=== PATIENT | female | born 1980 | race Caucasian/White ===

== ENCOUNTER 2018-01-13 07:58 | Inpatient (IN) | payer MEDICAID ==
[~2018-01-13] VITALS: Ht 157.5 cm; Wt 94.7 kg
[~2018-01-13 07:58] MED LIST: ASPI-515 PO
[2018-01-26] MEDS ORDERED: LACTATED RINGERS 1,000 ML IV SCH ×4 (09:55→12:19)
[2018-01-26] MEDS ORDERED: OXYTOCIN 30U/ 0.9% NaCL 500ML 500 ML IV SCH ×2 (09:55→12:19)
[2018-01-26] MEDS ORDERED: SODIUM CITRATE/CITRIC ACID 30 ML UDC PO ONE (10:00)
[2018-01-26] MEDS ORDERED: LACTATED RINGERS 1,000 ML IVBOLUS ONE (10:00)
[2018-01-26] MEDS ORDERED: METOCLOPRAMIDE 5 MG/ML, 2ML IV ONE (10:00)
[2018-01-26] MEDS ORDERED: PLEASE ENTER HEIGHT AND WEIGHT MC SCH (10:30)
[2018-01-26 10:33] VITALS: BP 112/78
[2018-01-26 10:36] LABS: BASOPHILS # (AUTO) 0.03 x10^3/uL (0-0.1); BASOPHILS % (AUTO) 0 % (0-1); EOSINOPHILS # (AUTO) 0.15 x10^3/uL (0-0.4); EOSINOPHILS % (AUTO) 1 % (1-7); LYMPHOCYTES # (AUTO) 1.03 x10^3/uL (1-3.4); LYMPHOCYTES % (AUTO) 10 % (22-44); MD NO; MEAN CORPUSCULAR HEMOGLOBIN 25.9 pg (27.0-34.8); MEAN CORPUSCULAR HGB CONC 32.8 g/dL (32.4-35.8); MEAN PLATELET VOLUME 7.8 fL (7.4-10.4); MONOCYTES # (AUTO) 0.76 x10^3/uL (0.2-0.8); MONOCYTES % (AUTO) 7 % (2-9); NEUTROPHILS # (AUTO) 8.76 x10^3/uL (1.8-6.8); NEUTROPHILS % (AUTO) 82 % (42-75); PLATELET COUNT 262 x10^3/uL (130-400); RED BLOOD COUNT 4.21 x10^6/uL (3.82-5.3); RED CELL DISTRIBUTION WIDTH 15.3 % (9.6-15.2)
[2018-01-26] MEDS ORDERED: PREN-3 PO (10:41)
[2018-01-26] MEDS ORDERED: [UNRECOGNIZED DRUG - CODE] SQ (10:41)
[2018-01-26 10:49] LABS: INTERNATIONAL NORMALIZED RATIO 0.89 (0.93-1.1); PROTHROMBIN TIME 9.2 Seconds (9.6-11.5)
[2018-01-26] MEDS ORDERED: METOCLOPRAMIDE 5 MG/ML, 2ML ONE (10:56)
[2018-01-26] MEDS ORDERED: SODIUM CITRATE/CITRIC ACID 30 ML UDC ONE (10:56)
[2018-01-26] MEDS ORDERED: OXYTOCIN 30U/ 0.9% NaCL 500ML 500 ML ONE (10:56)
[2018-01-26] MEDS ORDERED: ONDANSETRON 2MG/ML, 2ML ONE (11:39)
[2018-01-26] MEDS ORDERED: OXYTOCIN 10 UNITS/ML, 1ML ONE (11:39)
[2018-01-26] MEDS ORDERED: PHENYLEPHRINE 10 MG/ML ONE (11:39)
[2018-01-26] MEDS ORDERED: WATER-INJECTION,STERILE 10 ML IV ONE (11:39)
[2018-01-26] MEDS ORDERED: morphine SULFATE/PF 0.5 MG/ML, 10ML ONE (11:39)
[2018-01-26] MEDS ORDERED: EPHEDRINE 50 MG/ML, 1ML ONE (11:39)
[2018-01-26] MEDS ORDERED: CEFAZOLIN 1,000 MG ONE (11:39)
[2018-01-26] MEDS: LACTATED RINGERS 1,000 ML IV SCH ×4 (12:23→22:23)
[2018-01-26] MEDS: OXYTOCIN 30U/ 0.9% NaCL 500ML 500 ML IV SCH ×2 (12:23→22:23)
[2018-01-26] MEDS ORDERED: ACETAMINOPHEN 325 MG TABLET PO PRN ×2 (12:30)
[2018-01-26] MEDS ORDERED: OXYcodone/APAP 5/325MG TABLET PO PRN (12:30)
[2018-01-26] MEDS ORDERED: MEASLES,MUMPS&RUBELLA VACC/PF 0.5 ML SQ-VACC PRN ×2 (12:30)
[2018-01-26] MEDS ORDERED: ONDANSETRON 2MG/ML, 2ML IV PRN ×2 (12:30)
[2018-01-26] MEDS ORDERED: SIMETHICONE 80 MG CHEW TAB PO PRN (12:30)
[2018-01-26] MEDS ORDERED: MEPERIDINE/PF 50 MG/ML IVPush PRN ×2 (12:30)
[2018-01-26] MEDS ORDERED: OXYcodone IR 5MG TABLET PO PRN ×2 (12:30)
[2018-01-26] MEDS ORDERED: DOCUSATE 100 MG CAPSULE PO PRN (12:30)
[2018-01-26] MEDS: KETOROLAC 30 MG/1 ML IV SCH ×3 (12:30→23:58)
[2018-01-26] MEDS ORDERED: METHYLERGONOVINE 0.2 MG/ML IM PRN ×2 (12:30)
[2018-01-26] MEDS ORDERED: DIPH,PERTUSS(ACELL),TET VAC/PF NC IM-VACC PRN ×2 (12:30)
[2018-01-26] MEDS ORDERED: CARBOPROST TROMETHAMINE 250 MCG/ML, 1ML IM PRN ×2 (12:30)
[2018-01-26] MEDS ORDERED: morphine SULFATE 10 MG/ML, 1ML IVPush PRN ×4 (12:30)
[2018-01-26] MEDS ORDERED: MISOPROSTOL 200 MCG TABLET PR PRN ×2 (12:30)
[2018-01-26] MEDS ORDERED: IBUPROFEN 600 MG TABLET PO PRN ×2 (12:30)
[2018-01-26] MEDS ORDERED: KETOROLAC 30 MG/1 ML IV SCH (12:30)
[2018-01-26] MEDS ORDERED: NEWBORN KIT ONE (12:40)
[2018-01-26] MEDS ORDERED: HYDROmorphone 1 MG/ML, 1ML IV PRN (16:00)
[2018-01-26 16:18] VITALS: BP 102/67
[2018-01-26 19:45] VITALS: BP 110/70
[2018-01-26 21:32] LABS: BASOPHILS # (AUTO) 0.04 x10^3/uL (0-0.1); BASOPHILS % (AUTO) 0 % (0-1); EOSINOPHILS # (AUTO) 0.06 x10^3/uL (0-0.4); EOSINOPHILS % (AUTO) 1 % (1-7); LYMPHOCYTES # (AUTO) 1.13 x10^3/uL (1-3.4); LYMPHOCYTES % (AUTO) 12 % (22-44); MD NO; MEAN CORPUSCULAR HEMOGLOBIN 26.1 pg (27.0-34.8); MEAN CORPUSCULAR HGB CONC 33.2 g/dL (32.4-35.8); MEAN CORPUSCULAR VOLUME 78.7 fL (80-100); MEAN PLATELET VOLUME 7.4 fL (7.4-10.4); MONOCYTES # (AUTO) 0.64 x10^3/uL (0.2-0.8); MONOCYTES % (AUTO) 7 % (2-9); NEUTROPHILS # (AUTO) 7.97 x10^3/uL (1.8-6.8); NEUTROPHILS % (AUTO) 81 % (42-75); PLATELET COUNT 213 x10^3/uL (130-400); RED BLOOD COUNT 3.63 x10^6/uL (3.82-5.3); RED CELL DISTRIBUTION WIDTH 15.2 % (9.6-15.2)
[2018-01-26] MEDS: OXYcodone/APAP 5/325MG TABLET PO PRN (23:58)
[2018-01-26] MEDS: DOCUSATE 100 MG CAPSULE PO PRN (23:58)
[2018-01-27 00:05] VITALS: BP 101/65
[2018-01-27] MEDS: OXYcodone/APAP 5/325MG TABLET PO PRN ×5 (04:10→19:34)
[2018-01-27 04:11] VITALS: BP 98/66
[2018-01-27] MEDS: LACTATED RINGERS 1,000 ML IV SCH ×5 (04:23→20:23)
[2018-01-27] MEDS: KETOROLAC 30 MG/1 ML IV SCH ×3 (06:21→18:13)
[2018-01-27 08:00] VITALS: BP 98/63
[2018-01-27] MEDS ORDERED: ENOXAPARIN 40 MG/0.4 ML SQ SCH (08:00)
[2018-01-27] MEDS: OXYTOCIN 30U/ 0.9% NaCL 500ML 500 ML IV SCH ×2 (08:23→18:23)
[2018-01-27] MEDS: PRENATAL VIT/IRON/FA 1 EACH TABLET PO SCH (08:36)
[2018-01-27] MEDS: DOCUSATE 100 MG CAPSULE PO PRN ×2 (08:36→19:34)
[2018-01-27] MEDS: ENOXAPARIN 40 MG/0.4 ML SQ SCH (08:36)
[2018-01-27] MEDS ORDERED: PRENATAL VIT/IRON/FA 1 EACH TABLET PO SCH (09:00)
[2018-01-27 11:55] VITALS: BP 100/63
[2018-01-27 20:00] VITALS: BP 97/65
[2018-01-28] MEDS: KETOROLAC 30 MG/1 ML IV SCH ×2 (00:05→06:03)
[2018-01-28] MEDS: LACTATED RINGERS 1,000 ML IV SCH ×2 (00:21→00:22)
[2018-01-28] MEDS: OXYTOCIN 30U/ 0.9% NaCL 500ML 500 ML IV SCH (00:22)
[2018-01-28 08:25] VITALS: BP 96/60
[2018-01-28] MEDS: DOCUSATE 100 MG CAPSULE PO PRN (09:35)
[2018-01-28] MEDS: PRENATAL VIT/IRON/FA 1 EACH TABLET PO SCH (09:35)
[2018-01-28] MEDS: ENOXAPARIN 40 MG/0.4 ML SQ SCH (09:45)
[2018-01-28] MEDS ORDERED: IBUP-1222 PO (14:21)
[2018-01-28] MEDS ORDERED: OXYC-302 PO (14:22)
== END 2018-01-28 17:23 | disposition home or self-care (01) | DRG 765 ==
LOC: LDIP 01-26 09:53 → 2NW 01-26 15:38
PROVIDERS: ADMIT Obstetrics & Gynecology Maternal & Fetal Medicine; ATTEND Obstetrics & Gynecology Maternal & Fetal Medicine
PROC: 10D00Z1 Extraction of Products of Conception, Low, Open Approach (ICD-10-PCS; principal; 2018-01-26)
PROC: 0UB70ZZ Excision of Bilateral Fallopian Tubes, Open Approach (ICD-10-PCS; 2018-01-26)
DX: O34.211 Maternal care for low transverse scar from previous cesarean delivery (principal); D68.59 Other primary thrombophilia; O99.12 Other diseases of the blood and blood-forming organs and certain disorders involving the immune mechanism complicating childbirth; Z3A.39 39 weeks gestation of pregnancy; Z30.2 Encounter for sterilization; Z82.3 Family history of stroke; Z82.61 Family history of arthritis; Z83.3 Family history of diabetes mellitus
CPT/HCPCS: 36415; 85025; 85610; 85730; 86850; 86900; 88302; 90715; J0690; J1650; J1885; J2274; J2405; J2370; J2590; J2765; J7120

== ENCOUNTER 2018-01-17 12:44 | Outpatient (CLI) | payer MEDICAID | END 2018-01-17 13:34 | disposition home or self-care (01) | LOC: LDOP 12:44 | PROVIDERS: ATTEND Obstetrics & Gynecology Maternal & Fetal Medicine | DX: Z34.83 Encounter for supervision of other normal pregnancy, third trimester (principal); Z3A.37 37 weeks gestation of pregnancy | CPT/HCPCS: 59025; 99201; G0463 ==

== ENCOUNTER 2019-08-18 18:38 | Emergency (ER) | payer MEDICAID ==
[~2019-08-18] VITALS: Ht 160 cm; Wt 88.9 kg
[~2019-08-18 18:38] MED LIST changes: +ENOX40SY4 SQ; +IBUP-1222 PO; +OXYC-302 PO; +PREN-3 PO; +[UNRECOGNIZED DRUG - CODE] SQ
[2019-08-18 18:47] VITALS: BP 107/75
--- NOTE | 2019-08-18 20:46 | NUR ---
PT SITTING IN BED WITH BABY. WATER PROVIDED.
[2019-08-18 21:02] LABS: RAPID INFLUENZA A Negative (Negative); RAPID INFLUENZA B POSITIVE (Negative)
[2019-08-18] MEDS ORDERED: AZITHROMYCIN 500 MG TABLET PO ONE (22:30)
[2019-08-18] MEDS ORDERED: OSELTAMIVIR 75 MG CAPSULE PO ONE (22:30)
[2019-08-18] MEDS ORDERED: AZITHROMYCIN 250 MG TABLET ONE (22:34)
== END 2019-08-18 22:38 | disposition home or self-care (01) ==
LOC: ED 19:45
DX: J10.1 Influenza due to other identified influenza virus with other respiratory manifestations (principal)
CPT/HCPCS: 71046; 87400; 99284